=== PATIENT | male | born 1950 | race Caucasian/White ===

== ENCOUNTER 2019-04-07 18:06 | Emergency (ER) | payer MEDICARE ==
[~2019-04-07] VITALS: Ht 175.3 cm; Wt 94.8 kg
[2019-04-07 22:58] VITALS: BP 112/73
== END 2019-04-07 23:30 | disposition home or self-care (01) ==
LOC: ED 23:17
DX: N13.2 Hydronephrosis with renal and ureteral calculous obstruction (principal); E11.9 Type 2 diabetes mellitus without complications; Z87.891 Personal history of nicotine dependence; Z87.01 Personal history of pneumonia (recurrent)
CPT/HCPCS: 36415; 74176; 80053; 81003; 83690; 85025; 96374; 96375; 99284; J1885; J2270; J2405